=== PATIENT | female | born 1990 | race Two or more races ===

== ENCOUNTER 2024-11-26 01:43 | Emergency (ER) | payer OTHER ==
[~2024-11-26] VITALS: Ht 152.4 cm; Wt 52.2 kg
[2024-11-26] MEDS ORDERED: 0.9 % SODIUM CHLORIDE 500 ML IV STA (04:57)
[2024-11-26] MEDS ORDERED: FAMOtidine 10 MG/ML (4ML VIAL) IV PUSH STA (04:57)
[2024-11-26] MEDS ORDERED: FAMOTIDINE/PF 20 MG/2 ML VIAL ONE (05:35)
[2024-11-26] MEDS ORDERED: ELVITEG/COB/EMTRI/TENOFO DISOP 1 UDTAB TABLET PO ONE ×2 (05:38→10:32)
[2024-11-26] MEDS ORDERED: ELVITEG/COB/EMTRI/TENOFO DISOP 1 UDTAB TABLET PO STA (05:41)
[2024-11-26] MEDS ORDERED: CEFTRIAXONE SODIUM 1,000 MG VIAL IM STA (05:42)
[2024-11-26] MEDS ORDERED: CEFTRIAXONE SODIUM 1,000 MG VIAL ONE ×2 (05:49→10:32)
[2024-11-26 06:45] LABS: HEMATOCRIT 40.1 % (36.0-45.00); HEMOGLOBIN 14.1 g/dL (12.0-15.00); MEAN CELL VOLUME 88.8 fL (80.00-100.00); MEAN CORPUSCULAR HEMOGLOBIN 31.1 pg (27.00-32.0); PLATELET COUNT 274 K/uL (150-450); RED BLOOD COUNT 4.52 M/uL (4.00-6.00)
[2024-11-26 07:02] LABS: URINE APPEARANCE Clear; URINE BILIRRUBIN Small (NEGATIVE); URINE BLOOD Small; URINE COLOR Dark Yellow; URINE GLUCOSE Negative (NEGATIVE); URINE KETONE 15 (NEGATIVE); URINE LEUKOCYTE Trace; URINE NITRATE Negative; URINE PROTEIN Trace (NEGATIVE)
[2024-11-26 07:06] LABS: URINE BACTERIA 166.4 uL (0.0-1933); URINE EPITHELIAL CELLS 7.4 uL (0.0-38.8); URINE RBC 163.5 uL (0.0-20.8); URINE WBC 18.9 uL (0.0-23.2)
[2024-11-26 07:12] LABS: URINE CAST 0.44 uL (0.0-1.40)
[2024-11-26 07:21] LABS: ALBUMIN 4.2 gm/dL (3.4-5.0); BILIRUBIN TOTAL 1.3 mg/dL (0.3-1.2); CALCIUM 9.4 mg/dL (8.5-10.1); CREATININE SERUM 1.01 mg/dL (0.55-1.02); GFR 62.74; GLOBULINA 3.6 G/DL (2.4-3.5); POTASSIUM 3.74 mEq/L (3.5-5.1); TOTAL PROTEIN 7.8 gm/dL (6.4-8.2)
[2024-11-26 07:56] LABS: COCAINE NEGATIVE (NEGATIVE); METHADONE NEGATIVE (NEGATIVE); OPIATES NEGATIVE (NEGATIVE); THC ( Cannabinoids) POSITIVE (NEGATIVE)
[2024-11-26] MEDS ORDERED: AZITHROMYCIN 500 MG VIAL IV ONE ×2 (10:00→10:32)
[2024-11-26] MEDS ORDERED: CEFTRIAXONE SODIUM 1,000 MG VIAL IV ONE (10:00)
[2024-11-26] MEDS ORDERED: ONDANSETRON HCL 2 MG/ML VIAL IV STA (12:03)
[2024-11-26] MEDS ORDERED: ONDANSETRON HCL 2 MG/ML VIAL ONE (12:05)
== END 2024-11-26 14:46 | disposition home or self-care (01) ==
LOC: ER 01:46
DX: T76.21XA Adult sexual abuse, suspected, initial encounter (principal)